=== PATIENT | male | born 1990 | race Caucasian/White ===

== ENCOUNTER 2017-11-27 11:27 | Observation (INO) | payer OTHER ==
--- NOTE | 2017-11-27 12:05 | PDOC ---
Attending Attestation - HPI HPI: 11/27/17 13:31 The patient is a 26 year old male with a significant PMH of acute respiratory failure (with history of code at [facility] with subsequent tracheostomy and PEG tube placement) who presents to the emergency department from [facility] for PEG tube replacement. EMS reports the patient pulled out his PEG tube earlier today. He denies any pain or other complaints. Per [place], pt had the PEG tube put in at [facility] on 10/26/17. They do not know the size of the PEG tube. Allergies: NKA PCP: Dr. Erickson Del Rosario - Physicial Exam PE: 11/27/17 13:31 GENERAL: Awake, alert, in no acute distress HEAD: No signs of trauma EYES: PERRLA, EOMI, sclera anicteric, conjunctiva clear NECK: trach collar in place LUNGS: Breath sounds equal, clear to auscultation bilaterally. No wheezes, and no crackles HEART: Regular rate and rhythm, normal S1 and S2, no murmurs, rubs or gallops ABDOMEN: Soft, nontender, normoactive bowel sounds. No guarding, no rebound. PEG tube in LUQ partially displaced with tube tied in knot, gastric contents in tube. EXTREMITIES: Normal range of motion, no edema. NEUROLOGICAL: Normal speech, cranial nerves grossly intact SKIN: Warm, Dry, normal turgor, no rashes or lesions noted. <Luis Daniel Salazar - Last Filed: 11/27/17 18:10> - Resident Resident Name: French Mares - ED Attending Attestation I have performed the following: I have examined & evaluated the patient, The case was reviewed & discussed with the resident, I agree w/resident's findings & plan, Exceptions are as noted - Medical Decision Making 11/27/17 13:33 26-year-old male presents emergency Department with PEG tube displacement. Vitals initially with tachycardia to 109, will repeat. PEG is displaced on exam , we're currently attempting to find out what size PEG tube in order to replace it. In the meantime, will keep the old tube in the tract to keep it open. 11/27/17 18:48 PEG tube replaced with 16 [place] PEG without complication. Gastric contents seen in the tube. X-ray done with contrast shows PEG to be in good position. On reevaluation of vitals, heart rate is now in the 130s. Possible dehydration as patient may be behind on his fluids/feeds. Due to prolonged length of stay, the patient was put under ED observation and signout was given to Dr. Zamorano. Will put in IV, rehydrate patient, and check basic labs. If vitals normalize and labs are within normal limits, patient can be discharged back to care home. Patient to be signed out to the overnight attending at 1900 for further evaluation and management <Parveen Sheth - Last Filed: 11/27/17 18:53>
--- NOTE | 2017-11-27 12:58 | PDOC ---
History of Present Illness - General Chief Complaint: G Tube Problem Stated Complaint: PEG REPLACEMENT Time Seen by Provider: 11/27/17 12:05 History Source: Patient Exam Limitations: Clinical Condition - History of Present Illness Initial Comments: 11/27/17 12:48 Patient is a 26M with history of acute respiratory failure s/p trach and peg tube at [facility] here today from [facility] complaining of dislodging of PEG tube. EMS reports that he took it out himself because he was bored. [facility] reports that the PEG tube was placed on 10/26/17 at [facility]. Patient denies any pain, nausea, vomiting, fevers, and chills. Patient says he is not sure how the PEG tube got out. [facility] reports that they do not know the size of the PEG tube. Past History - Past Medical History Allergies/Adverse Reactions: Allergies Allergy/AdvReac Type Severity Reaction Status Date / Time No Known Allergies Allergy Verified 11/27/17 12:04 Home Medications: Ambulatory Orders Acetaminophen [Tylenol Arthritis] 650 mg PO QID PRN 11/27/17 Apixaban [Eliquis] 5 mg GT BID 11/27/17 Ergocalciferol [Drisdol Oral Solution -] 8,000 units GT WEEKLY 11/27/17 Folic Acid 1 mg GT DAILY 11/27/17 Multivit-Minerals/Ferrous Fum [Multivitamin Liquid] 9 mg GT DAILY 11/27/17 Thiamine HCl [Vitamin B1] 100 mg GT DAILY 11/27/17 Anemia: Yes COPD: No Other medical history: DVT, dysphagia - Suicide/Smoking/Psychosocial Hx Smoking History: Unknown if ever smoked Review of Systems - Review of Systems Comments:: 11/27/17 12:58 GENERAL/CONSTITUTIONAL: No fever or chills. No weakness. HEAD, EYES, EARS, NOSE AND THROAT: No change in vision. No sore throat. CARDIOVASCULAR: No chest pain or shortness of breath RESPIRATORY: No cough, wheezing, or hemoptysis. GASTROINTESTINAL: No nausea, vomiting, diarrhea or constipation. GENITOURINARY: No dysuria, frequency, or change in urination. MUSCULOSKELETAL: No joint or muscle swelling or pain. No neck or back pain. SKIN: Positive for rash on left arm, resolving NEUROLOGIC: No headache, vertigo, loss of consciousness, or change in strength/ sensation. ENDOCRINE: No increased thirst. No abnormal weight change ALLERGIC/IMMUNOLOGIC: No hives or skin allergy. *Physical Exam - Vital Signs Last Vital Signs Temp Pulse Resp BP Pulse Ox 97.7 F 109 H 18 160/90 96 11/27/17 11:58 11/27/17 11:58 11/27/17 11:58 11/27/17 11:58 11/27/17 11:58 - Physical Exam Comments: 11/27/17 12:59 GENERAL: Awake, alert, and fully oriented, in no acute distress HEAD: No signs of trauma, normocephalic, atraumatic EYES: PERRLA, EOMI, sclera anicteric, conjunctiva clear ENT: Auricles normal inspection, hearing grossly normal, nares patent, oropharynx clear without exudates. Moist mucosa NECK: Normal ROM, supple, no lymphadenopathy, JVD, or masses LUNGS: No distress, speaks full sentences, clear to auscultation bilaterally HEART: Regular rate and rhythm, normal S1 and S2, no murmurs, rubs or gallops, peripheral pulses normal and equal bilaterally. ABDOMEN: Soft, nontender, g-tube with gastric contents in mature appearing tract EXTREMITIES: Normal inspection, Normal range of motion, no edema. No clubbing or cyanosis. NEUROLOGICAL: Cranial nerves II through XII grossly intact. Left arm 0/5 strength, at baseline per patient. SKIN: Warm, Dry, normal turgor, no rashes or lesions noted. ED Treatment Course - LABORATORY CBC & Chemistry Diagram: 11/27/17 18:00 11/27/17 18:00 Medical Decision Making - Medical Decision Making 11/27/17 13:00 Patient is 26M with history of acute respiratory failure s/p trach and peg here today for peg replacement. Vital signs stable and normal. PE unremarkable with exception dislodged g-tube. G-tube placed just over 4 weeks ago. Will attempt replacement. 11/27/17 17:49 Placement confirmed with radiology. Unable to ever obtain prior size. Put 16fr in. Will discharge back to [facility]. 11/27/17 19:04 On evaluation prior to discharge, heart rate found to be 136. EKG obtained, shows sinus tachycardia with rate of 118. No st elevations/depressions, no significant t wave abnormalites. Normal OK, QRS, QTc intervals. Labs drawn and fluid started. Will give 2L. Signed out to Dr Brenner. Believe tachycardia is most likely due to dehydration. *DC/Admit/Observation/Transfer Diagnosis at time of Disposition: PEG tube malfunction - Referrals Referrals: Erickson Del Rosario MD [Primary Care Provider] - - Patient Instructions Printed Discharge Instructions: How to Care for Your PEG Tube - Post Discharge Activity
[2017-11-27] MEDS ORDERED: SODIUM CHLORIDE 1,000 ML IV STA ×2 (17:58→18:13)
[2017-11-27 18:56] LABS: BASO % 1.1 % (0-2.0); EOS % 2.6 % (0-4.5); HEMATOCRIT 34.8 % (35.4-49); HEMOGLOBIN 11.4 GM/dL (11.7-16.9); LYMPH % 18.1 % (8-40); MCH 28.5 pg (25.7-33.7); MCHC 32.8 g/dl (32.0-35.9); MEAN CELL VOLUME 86.8 fl (80-96); MEAN PLT VOLUME 7.6 fl (7.5-11.1); MONO % 10.4 % (3.8-10.2); NEUT % 67.8 % (42.8-82.8); PLATELET COUNT 315 K/MM3 (134-434); RBC 4.01 M/mm3 (4.00-5.60); RDW 17.4 % (11.9-15.9); WHITE BLOOD COUNT 8.1 K/mm3 (4.0-10.0)
--- NOTE | 2017-11-27 19:16 | PDOC ---
*Physical Exam - Vital Signs Last Vital Signs Temp Pulse Resp BP Pulse Ox 97.7 F 109 H 18 160/90 96 11/27/17 11:58 11/27/17 11:58 11/27/17 11:58 11/27/17 11:58 11/27/17 11:58 ED Treatment Course - LABORATORY CBC & Chemistry Diagram: 11/27/17 18:00 11/27/17 18:00 - ADDITIONAL ORDERS Additional order review: 11/27/17 18:00 RBC 4.01 MCV 86.8 MCHC 32.8 RDW 17.4 H MPV 7.6 Neutrophils % 67.8 Lymphocytes % 18.1 Monocytes % 10.4 H Eosinophils % 2.6 Basophils % 1.1 - Medications Given in the ED: ED Medications Discontinued Medications Generic Name Dose Route Start Last Admin Trade Name Freq PRN Reason Stop Dose Admin Sodium Chloride 1,000 mls @ 1,000 mls/hr 11/27/17 17:58 11/27/17 19:08 Normal Saline - IV 11/27/17 18:57 1,000 mls/hr ASDIR STA Administration Medical Decision Making - Medical Decision Making 11/27/17 19:16 Care taken over from Dr. Mares. 11/27/17 20:34 Patient is a 26 yo male w/ PEG presenting for dislodged tube. Unknown size however 16F placed by previous team and confirmed in place. Upon attempted discharge patient noted to by tachycardic to 136 - Patient remains tachycardic after 2L NS. Admitting to hospitalist for observation for persistent tachycardia. *DC/Admit/Observation/Transfer Diagnosis at time of Disposition: PEG tube malfunction, Tachycardia - Discharge Dispostion Admit: Yes - Referrals Referrals: Erickson Del Rosario MD [Primary Care Provider] - - Patient Instructions Printed Discharge Instructions: How to Care for Your PEG Tube - Post Discharge Activity
[2017-11-27 19:19] LABS: INR 1.3 (0.82-1.09); PROTHROMBIN TIME (PATIENT) 14.7 SEC (9.98-11.88)
[2017-11-27 19:27] LABS: ALBUMIN 3.8 g/dl (3.4-5.0); ANION GAP 8 (8-16); BILIRUBIN,TOTAL 0.7 mg/dL (0.2-1.0); BLOOD UREA NITROGEN 6 mg/dL (7-18); CALCIUM 8.9 mg/dL (8.5-10.1); CHLORIDE 103 mmol/L (98-107); CO2 28 mmol/L (21-32); CREATININE 0.5 mg/dL (0.7-1.3); GLUCOSE,RANDOM 94 mg/dL (74-106); SGPT/ALT 26 U/L (12-78); SODIUM 139 mmol/L (136-145); TOT PROT 7.2 g/dl (6.4-8.2)
[2017-11-27 19:29] LABS: ALK PHOS 74 U/L (45-117)
[2017-11-27 19:30] LABS: POTASSIUM 3.9 mmol/L (3.5-5.1); SGOT/AST 21 U/L (15-37)
--- NOTE | 2017-11-27 22:28 | HP ---
Admitting History and Physical - Primary Care Physician PCP: Rohit Garcia - Admission History of Present Illness: 26 year old male with a significant PMH of acute respiratory failure (with history of code at [facility] with subsequent tracheostomy and PEG tube placement) who presents to the emergency department from [facility] for PEG tube replacement. EMS reports the patient pulled out his PEG tube earlier today. He denies any pain or other complaints. Per [place], pt had the PEG tube put in at [facility] on 10/26/17. They do not know the size of the PEG tube. peg tube was placed, pt was found to have tachycardia in ER , was given 2l ivf, remain tachycardic was admitted for observation - Smoking History Smoking history: Unknown if ever smoked Home Medications - Allergies Allergies/Adverse Reactions: Allergies Allergy/AdvReac Type Severity Reaction Status Date / Time No Known Allergies Allergy Verified 11/27/17 12:04 - Home Medications Home Medications: Ambulatory Orders Acetaminophen [Tylenol Arthritis] 650 mg PO QID PRN 11/27/17 Apixaban [Eliquis] 5 mg GT BID 11/27/17 Ergocalciferol [Drisdol -] 8,000 units GT WEEKLY 11/27/17 Folic Acid 1 mg GT DAILY 11/27/17 Multivit-Minerals/Ferrous Fum [Multivitamin Liquid] 9 mg GT DAILY 11/27/17 Thiamine HCl [Vitamin B1 -] 100 mg GT DAILY 11/27/17 Physical Examination Vital Signs: Vital Signs Temperature 97.7 F 11/27/17 11:58 Pulse Rate 118 H 11/27/17 20:13 Respiratory Rate 18 11/27/17 19:17 Blood Pressure 137/91 11/27/17 19:17 O2 Sat by Pulse Oximetry (%) 100 11/27/17 19:17 Constitutional: Yes: Anxious HENT: Yes: Atraumatic Neck: Yes: Other (trach collar) Cardiovascular: Yes: Regular Rate and Rhythm Respiratory: Yes: CTA Bilaterally Gastrointestinal: Yes: Normal Bowel Sounds, Other (peg in place) Extremities: Yes: WNL Edema: No Neurological: Yes: Alert, Oriented Labs: CBC, BMP 11/27/17 18:00 11/27/17 18:00 Problem List - Problems (1) PEG tube malfunction Assessment/Plan: placed in position Code(s): K94.23 - GASTROSTOMY MALFUNCTION (2) Tachycardia Assessment/Plan: monitor on tele ivf fluids given Code(s): R00.0 - TACHYCARDIA, UNSPECIFIED Assessment/Plan Laboratory Tests 11/27/17 11/27/17 11/27/17 18:00 18:00 18:00 WBC 8.1 RBC 4.01 Hgb 11.4 L Hct 34.8 L MCV 86.8 MCH 28.5 MCHC 32.8 RDW 17.4 H Plt Count 315 MPV 7.6 Neutrophils % 67.8 Lymphocytes % 18.1 Monocytes % 10.4 H Eosinophils % 2.6 Basophils % 1.1 PT with INR 14.70 H INR 1.30 H Sodium 139 Potassium 3.9 Chloride 103 Carbon Dioxide 28 Anion Gap 8 BUN 6 L Creatinine 0.5 L Creat Clearance w eGFR > 60 Random Glucose 94 Calcium 8.9 Magnesium 2.0 Total Bilirubin 0.7 AST 21 ALT 26 Alkaline Phosphatase 74 Creatine Kinase 74 Troponin I < 0.02 Total Protein 7.2 Albumin 3.8 Active Medications Generic Name Dose Route Start Last Admin Trade Name Nakulq PRN Reason Stop Dose Admin Apixaban 5 mg 11/28/17 10:00 11/28/17 09:22 Eliquis - PO 5 mg BID RUIZ Administration Folic Acid 1 mg 11/28/17 10:00 11/28/17 09:22 Folic Acid - GT 1 mg DAILY RUIZ Administration Sodium Chloride 1,000 mls @ 75 mls/hr 11/27/17 22:45 11/27/17 23:19 Normal Saline - IV 75 mls/hr ASDIR RUIZ Administration Thiamine HCl 100 mg 11/28/17 10:00 11/28/17 09:22 Vitamin B1 - NR 100 mg DAILY RUIZ Administration
[2017-11-27] MEDS ORDERED: SODIUM CHLORIDE 1,000 ML IV SCH (22:45)
[2017-11-28 07:41] LABS: BASO % 1.2 % (0-2.0); EOS % 3.5 % (0-4.5); HEMATOCRIT 32.9 % (35.4-49); HEMOGLOBIN 10.6 GM/dL (11.7-16.9); LYMPH % 24.2 % (8-40); MCH 28.1 pg (25.7-33.7); MCHC 32.1 g/dl (32.0-35.9); MEAN CELL VOLUME 87.6 fl (80-96); MONO % 9.3 % (3.8-10.2); NEUT % 61.8 % (42.8-82.8); PLATELET COUNT 313 K/MM3 (134-434); RBC 3.76 M/mm3 (4.00-5.60); RDW 17.5 % (11.9-15.9); WHITE BLOOD COUNT 6.3 K/mm3 (4.0-10.0)
[2017-11-28 07:59] LABS: ALBUMIN 3.6 g/dl (3.4-5.0); ANION GAP 10 (8-16); BLOOD UREA NITROGEN 5 mg/dL (7-18); CALCIUM 8.5 mg/dL (8.5-10.1); CHLORIDE 107 mmol/L (98-107); CO2 23 mmol/L (21-32); CREATININE 0.4 mg/dL (0.7-1.3); GLUCOSE,RANDOM 84 mg/dL (74-106); POTASSIUM 3.8 mmol/L (3.5-5.1); SGOT/AST 16 U/L (15-37); SGPT/ALT 25 U/L (12-78); SODIUM 140 mmol/L (136-145)
[2017-11-28 08:00] LABS: ALK PHOS 70 U/L (45-117); BILIRUBIN,TOTAL 0.7 mg/dL (0.2-1.0); TOT PROT 6.8 g/dl (6.4-8.2)
[2017-11-28 08:03] VITALS: TEMP 98.7
--- NOTE | 2017-11-28 08:54 | EKG ---
Test Reason : Blood Pressure : / mmHG Vent. Rate : 118 BPM Atrial Rate : 118 BPM P-R Int : 126 ms QRS Dur : 090 ms QT Int : 342 ms P-R-T Axes : 054 -01 027 degrees QTc Int : 479 ms SINUS TACHYCARDIA MODERATE VOLTAGE CRITERIA FOR LVH, MAY BE NORMAL VARIANT BORDERLINE ECG NO PREVIOUS ECGS AVAILABLE Confirmed by Micheal Nick MD ([id number]) on 11/28/2017 8:53:58 AM Referred By: Confirmed By:Micheal Nick MD
[2017-11-28] MEDS ORDERED: APIXABAN 5 MG TABLET PO SCH (10:00)
[2017-11-28] MEDS ORDERED: THIAMINE HCL 100 MG TABLET (FP) NR SCH (10:00)
[2017-11-28] MEDS ORDERED: FOLIC ACID 1 MG TABLET (FP) GT SCH (10:00)
--- NOTE | 2017-11-28 12:48 | DS ---
Physical Examination Vital Signs: Vital Signs Temperature 98.7 F 11/28/17 07:58 Pulse Rate 115 H 11/28/17 10:43 Respiratory Rate 18 11/28/17 10:43 Blood Pressure 139/79 11/28/17 07:58 O2 Sat by Pulse Oximetry (%) 98 11/28/17 10:43 Labs: CBC, BMP 11/28/17 07:15 11/28/17 07:15 Discharge Summary Reason For Visit: TACHYCARDIA Current Active Problems PEG tube malfunction (Acute) Tachycardia (Acute) Condition: Good - Instructions Referrals: Erickson Del Rosario MD [Primary Care Provider] - - Home Medications Comprehensive Discharge Medication List: Ambulatory Orders Acetaminophen [Tylenol Arthritis] 650 mg PO QID PRN 11/27/17 Apixaban [Eliquis] 5 mg GT BID 11/27/17 Ergocalciferol [Drisdol Oral Solution -] 8,000 units GT WEEKLY 11/27/17 Folic Acid 1 mg GT DAILY 11/27/17 Multivit-Minerals/Ferrous Fum [Multivitamin Liquid] 9 mg GT DAILY 11/27/17 Thiamine HCl [Vitamin B1] 100 mg GT DAILY 11/27/17 cleared by cardio to be dc to [facility]
--- NOTE | 2017-11-28 13:17 | CON.CARD ---
Cardiology Consult (text) - Consultation Consultation Note: Cardiology Patient was briefly seen in the ED. Patient is a 27 year old male with previous history of acute respiratory failure requiring mechanical ventilation at [facility] and a PEG placement. This happened in October. He was admitted this time after he pulled out the PEG and it had to be repositioned. ECG reveals sinus tachycardia and cardiology consultation was called for further evaluation. He remains asymptomatic at this time. Blood work including troponin level is unremarkable. Patient may be returned back to the intermediate and no further cardiac intervention is needed at this time. Discussed with ER Nursing staff. Thank you for the consultation. Sam Car MD
[2017-11-28 13:18] VITALS: BMI 34.4
[2017-11-28 14:48] VITALS: BP 125/99; PULSE 113
== END 2017-11-28 14:50 ==
LOC: JER 11:27 → JERBED 20:36
PROVIDERS: ADMIT Internal Medicine; ATTEND Internal Medicine
PROC: 0D20XUZ Change Feeding Device in Upper Intestinal Tract, External Approach (ICD-10-PCS; principal; 2017-11-27)
DX: K94.23 Gastrostomy malfunction (principal); R00.0 Tachycardia, unspecified; Z87.09 Personal history of other diseases of the respiratory system
CPT/HCPCS: 36415; 43760; 74018-TC-FY; 80053; 82550; 83735; 84484; 85025; 85610; 93005; 93010; 99284-25; G0378

== ENCOUNTER 2017-11-30 23:01 | Inpatient (IN) | payer OTHER ==
[2017-11-30 23:26] VITALS: BMI 25.7
--- NOTE | 2017-12-01 00:07 | PDOC ---
History of Present Illness - General Chief Complaint: Trach Tube Replacement Stated Complaint: TRACHEOSTOMY TUBE REPLACEMENT Time Seen by Provider: 11/30/17 23:50 - History of Present Illness Initial Comments: 12/01/17 00:27 The patient is a 27 year old male with a history of respiratory failure s/p trach and peg who presents from [facility] for evaluation of a clogged trach. The patient is not a reliable historian so history is obtained from CT paperwork. Per CT, they were having difficulty suctioning the patient's trach and sent him to the ER for evaluation. The patient denies any fevers, chills, SOB, difficulty breathing, chest pain, nausea, vomiting, abdominal pain, or changes with urination or bowel movements. Past History - Past Medical History Allergies/Adverse Reactions: Allergies Allergy/AdvReac Type Severity Reaction Status Date / Time No Known Allergies Allergy Verified 11/30/17 23:12 Home Medications: Ambulatory Orders Acetaminophen [Tylenol Arthritis] 650 mg PO QID PRN 11/27/17 Apixaban [Eliquis] 5 mg GT BID 11/27/17 Ergocalciferol [Drisdol -] 8,000 units GT WEEKLY 11/27/17 Folic Acid 1 mg GT DAILY 11/27/17 Multivit-Minerals/Ferrous Fum [Multivitamin Liquid] 9 mg GT DAILY 11/27/17 Thiamine HCl [Vitamin B1 -] 100 mg GT DAILY 11/27/17 Anemia: Yes COPD: No - Suicide/Smoking/Psychosocial Hx Smoking History: Never smoked Have you smoked in the past 12 months: No Information on smoking cessation initiated: No Hx Alcohol Use: No Drug/Substance Use Hx: No Review of Systems - Review of Systems Comments:: 12/01/17 00:30 Constitutional: No fevers, chills, fatigue, malaise HEENT: No Rhinorrhea, nasal congestion, visual changes Cardiovascular: No chest pain, syncope, palpitations, lightheadedness Respiratory: No Cough, SOB, Hemoptysis, Gastrointestinal: No Abdominal pain, Nausea, Vomiting, Constipation, Diarrhea, Melena Genitourinary: No Dysuria, Frequency, Urgency, Hesitancy, Hematuria, Flank pain Musculoskeletal: No Myalgia, arthralgia Skin: No rashes, itching, bruising, pallor Neurologic: No Headache, Dizziness, Numbness, Weakness, or Tingling Psychiatric: No Hallucinations. No SI or HI *Physical Exam - Vital Signs Last Vital Signs Temp Pulse Resp BP Pulse Ox 97.5 F L 100 H 20 141/90 98 11/30/17 23:22 11/30/17 23:22 11/30/17 23:22 11/30/17 23:22 11/30/17 23:22 - Physical Exam Comments: 12/01/17 00:31 General Appearance: Nourished. No Apparent Distress HEENT: Trach in place with some thick whitish, greenish discharge around the trach site. No Pharyngeal Erythema, Tonsillar Exudate, Tonsillar Erythema Neck: No Cervical Lymphadenopathy Respiratory/Chest: Lungs Clear, Normal Breath Sounds. No Crackles, Rales, Rhonchi, Wheezing Cardiovascular: Regular Rhythm, Regular Rate. No Murmur, Gallops, Rubs Gastrointestinal/Abdominal: Normal Bowel Sounds, Soft. No Guarding, Rebound, Tenderness Musculoskeletal: No CVA Tenderness Extremity: Normal Capillary Refill Integumentary: Normal Color, Dry, Warm Neurologic: Fully Oriented, Alert, Normal Mood/Affect, Normal Response, ED Treatment Course - LABORATORY CBC & Chemistry Diagram: 12/01/17 02:55 12/01/17 02:55 Medical Decision Making - Medical Decision Making 12/01/17 00:32 The patient is a 27 year old male with a history of respiratory failure s/p trach and peg who presents from [facility] for evaluation of a clogged trach. Given that the patient is asymptomatic at this time, we will attempt to suction out the trach here in the ED as well as send a culture of the discharge around the trach site. We will continue to monitor and reassess. 12/01/17 02:18 Trach was unable to be suctioned by nurse or respiratory due to blockage. The patient will require eval for trach replacement by ENT. We discussed the case with the hospitalist team who accepted the patient for admission. *DC/Admit/Observation/Transfer Diagnosis at time of Disposition: Complication of tracheostomy tube - Discharge Dispostion Condition at time of disposition: Stable Admit: Yes - Referrals - Patient Instructions - Post Discharge Activity
--- NOTE | 2017-12-01 00:07 | PDOC ---
Attending Attestation - Resident Resident Name: Yasir Rivera - ED Attending Attestation I have performed the following: I have examined & evaluated the patient, The case was reviewed & discussed with the resident, I agree w/resident's findings & plan, Exceptions are as noted <Luis Morales - Last Filed: 12/01/17 00:07> - HPI HPI: 12/01/17 00:16 The patient is a 27 year old male, with a significant past medical history of acute respiratory failure (with history of code at [facility] with subsequent tracheostomy and PEG tube placement), who presents to the emergency department from [facility] for evaluation of tracheostomy tube. The patient reports he was sent to the ER for possible trach tube replacement secondary to clogged tube. As per nursing records, patient has associated purulent drainage, but no erythema. Patient denies any recent fever or chills. He denies any nausea or vomiting. Allergies: NKDA - Physicial Exam PE: 12/01/17 00:43 GENERAL: Well developed, well nourished. Awake and alert. No acute distress. HEENT: Normocephalic, atraumatic. PERRLA, EOMI. No conjunctival pallor. Sclera are non- icteric. Moist mucous membranes. Oropharynx is clear. NECK: Tracheostomy tube in place with green/whitish discharge surrounding the area. Supple. CARDIOVASCULAR: Regular rate and rhythm. No murmurs, rubs, or gallops. Distal pulses are 2+ and symmetric. PULMONARY: No evidence of respiratory distress. Lungs clear to auscultation bilaterally. No wheezing, rales or rhonchi. ABDOMINAL: Soft. Non-tender. Non-distended. No rebound or guarding. No organomegaly. Normoactive bowel sounds. MUSCULOSKELETAL Normal range of motion at all joints. No bony deformities or tenderness. No CVA tenderness. EXTREMITIES: No cyanosis. No clubbing. No edema. No calf tenderness. SKIN: Warm and dry. Normal capillary refill. No rashes. No jaundice. NEUROLOGICAL: Alert, awake, appropriate. Cranial nerves 2-12 intact. No deficits to light touch and temperature in face, upper extremities and lower extremities. No motor deficits in the in face, upper extremities and lower extremities. - Medical Decision Making 12/01/17 00:16 Documentation prepared by Darrell Turner, acting as medical biller for Luis Morales DO. <Darrell Turner - Last Filed: 12/01/17 00:44>
--- NOTE | 2017-12-01 01:12 | HP ---
CHIEF COMPLAINT: clogged trach PCP: HISTORY OF PRESENT ILLNESS: This is a 27-year-old male with past medical history of hypoxic arrest status post's alcoholic encephalopathy, extremities DVT who sent to emergency department from [facility] with clotted trach. Patient unable to be suctioned that his care facility. Also attempts to suction patient unsuccessful in the emergency department. Patient denies any shortness of breath, chest pain, abdominal pain, nausea, vomiting, cough. ER course was notable for: (1) unable to pass suction tube (2) drainage culture collected Recent Travel: none PAST MEDICAL HISTORY: see HPI PAST SURGICAL HISTORY: see HPI Social History: Smoking: denies Alcohol: 1 bottle hard liquor daily until 09/24 Drugs: denies Family History: Allergies No Known Allergies Allergy (Verified 11/30/17 23:12) HOME MEDICATIONS: Home Medications Medication Instructions Recorded Acetaminophen [Tylenol Arthritis] 650 mg PO QID PRN 11/27/17 Apixaban [Eliquis] 5 mg GT BID 11/27/17 Ergocalciferol [Drisdol -] 8,000 units GT WEEKLY 11/27/17 Folic Acid 1 mg GT DAILY 11/27/17 Multivit-Minerals/Ferrous Fum 9 mg GT DAILY 11/27/17 [Multivitamin Liquid] Thiamine HCl [Vitamin B1 -] 100 mg GT DAILY 11/27/17 REVIEW OF SYSTEMS CONSTITUTIONAL: Absent: fever, chills, diaphoresis, generalized weakness, malaise, loss of appetite, weight change HEENT: Present- clogged trach Absent: rhinorrhea, nasal congestion, throat pain, throat swelling, difficulty swallowing, mouth swelling, ear pain, eye pain, visual changes CARDIOVASCULAR: Absent: chest pain, syncope, palpitations, irregular heart rate, lightheadedness , peripheral edema RESPIRATORY: Absent: cough, shortness of breath, dyspnea with exertion, orthopnea, wheezing, stridor, hemoptysis GASTROINTESTINAL: Absent: abdominal pain, abdominal distension, nausea, vomiting, diarrhea, constipation, melena, hematochezia GENITOURINARY: Absent: dysuria, frequency, urgency, hesitancy, hematuria, flank pain, genital pain MUSCULOSKELETAL: Absent: myalgia, arthralgia, joint swelling, back pain, neck pain SKIN: Absent: rash, itching, pallor HEMATOLOGIC/IMMUNOLOGIC: Absent: easy bleeding, easy bruising, lymphadenopathy, frequent infections ENDOCRINE: Absent: unexplained weight gain, unexplained weight loss, heat intolerance, cold intolerance NEUROLOGIC: Absent: headache, focal weakness or paresthesias, dizziness, unsteady gait, seizure, mental status changes, bladder or bowel incontinence PSYCHIATRIC: Absent: anxiety, depression, suicidal or homicidal ideation, hallucinations. PHYSICAL EXAMINATION Vital Signs - 24 hr 11/30/17 23:22 Temperature 97.5 F L Pulse Rate 100 H Respiratory 20 Rate Blood Pressure 141/90 O2 Sat by Pulse 98 Oximetry (%) GENERAL: Awake, alert, and fully oriented, in no acute distress. HEAD: Normal with no signs of trauma. EYES: Pupils equal, round and reactive to light, extraocular movements intact, sclera anicteric, conjunctiva clear. No lid lag. EARS, NOSE, THROAT: Ears normal, nares patent, oropharynx clear without exudates. Moist mucous membranes. NECK: Normal range of motion, supple without lymphadenopathy, JVD, or masses. LUNGS: Breath sounds equal, clear to auscultation bilaterally. No wheezes, and no crackles. No accessory muscle use. HEART: Regular rate and rhythm, normal S1 and S2 without murmur, rub or gallop. ABDOMEN: Soft, nontender, not distended, normoactive bowel sounds, no guarding, no rebound, no masses. No hepatomegaly or splenomegaly. PEG present. No erythema surrounding PEG. MUSCULOSKELETAL: Normal range of motion at all joints. No bony deformities or tenderness. No CVA tenderness. Left translational specialist strength 2/5. Right 5/5. UPPER EXTREMITIES: 2+ pulses, warm, well-perfused. No cyanosis. No clubbing. No peripheral edema. Left translational specialist strength 2/5. Right 5/5. LOWER EXTREMITIES: 2+ pulses, warm, well-perfused. No calf tenderness. No peripheral edema. NEUROLOGICAL: Cranial nerves II-XII intact. Normal speech. Normal gait. PSYCHIATRIC: Cooperative. Good eye contact. Appropriate mood and affect. SKIN: Warm, dry, normal turgor, no rashes or lesions noted, normal capillary refill. ASSESSMENT/PLAN: A: 27-year-old male with history of hypoxic arrest status post trach and PEG now with clogged trach P: Clogged tracheostomy - ENT consult to replace - Humidified oxygen via trach collar Right lower extremity DVT - Eliquis F/E/N - Jevity at 75 mL an hour for 18 hours daily - Replete as needed PPX - Eliquis Dispo- requires observation of his acute medical condition Visit type - Emergency Visit Emergency Visit: Yes ED Registration Date: 12/01/17 Care time: The patient presented to the Emergency Department on the above date and was hospitalized for further evaluation of their emergent condition. - New Patient This patient is new to me today: Yes Date on this admission: 12/01/17 - Critical Care Critical Care patient: No Hospitalist Screening - Colonoscopy Questionnaire Colonoscopy Questionnaire: Colonoscopy Questionnaire - Patient: 50 - 75 years old and never had a screening colonoscopy: No History of colon or rectal polyps, or CA: No History of IBD, Crohn's disease or UC: No History of abdominal radiation therapy as a child: No - Relative: 1 with colon or rectal CA, or polyps at age 60 or younger: Unknown Colon or rectal CA diagnosed at age 45 or younger: Unknown Multiple relatives with colon or rectal CA: Unknown - Outcome: Screening Result: Negative Screen
[2017-12-01 03:00] LABS: BASO % 1.2 % (0-2.0); EOS % 2.1 % (0-4.5); HEMATOCRIT 32.7 % (35.4-49); HEMOGLOBIN 10.6 GM/dL (11.7-16.9); LYMPH % 11.1 % (8-40); MCH 28.5 pg (25.7-33.7); MCHC 32.5 g/dl (32.0-35.9); MEAN CELL VOLUME 87.6 fl (80-96); MEAN PLT VOLUME 7.8 fl (7.5-11.1); NEUT % 78.6 % (42.8-82.8); PLATELET COUNT 315 K/MM3 (134-434); RBC 3.73 M/mm3 (4.00-5.60); RDW 17.5 % (11.9-15.9); WHITE BLOOD COUNT 12.4 K/mm3 (4.0-10.0)
[2017-12-01 03:15] LABS: INR 1.5 (0.82-1.09); PROTHROMBIN TIME (PATIENT) 16.9 SEC (9.98-11.88)
[2017-12-01] MEDS ORDERED: ACETAMINOPHEN 650 MG/20.3 ML ORAL SOLUTION (CUPS) PO PRN (03:15)
[2017-12-01] MEDS ORDERED: ACETAMINOPHEN 650 MG/20.3 ML ORAL SOLUTION (CUPS) GT PRN (03:16)
[2017-12-01 03:28] LABS: ALBUMIN 3.4 g/dl (3.4-5.0); ALK PHOS 72 U/L (45-117); ANION GAP 13 (8-16); BILIRUBIN,TOTAL 0.8 mg/dL (0.2-1.0); BLOOD UREA NITROGEN 4 mg/dL (7-18); CALCIUM 9.2 mg/dL (8.5-10.1); CHLORIDE 105 mmol/L (98-107); CO2 22 mmol/L (21-32); CREATININE 0.3 mg/dL (0.7-1.3); GLUCOSE,RANDOM 91 mg/dL (74-106); POTASSIUM 3.8 mmol/L (3.5-5.1); SGOT/AST 9 U/L (15-37); SGPT/ALT 23 U/L (12-78); SODIUM 140 mmol/L (136-145); TOT PROT 7.1 g/dl (6.4-8.2)
[2017-12-01] MEDS ORDERED: SODIUM CHLORIDE 1,000 ML IV STA (06:41)
--- NOTE | 2017-12-01 08:44 | HOSP ---
Physical Examination Vital Signs: Vital Signs Temperature 99.6 F 12/01/17 08:35 Pulse Rate 137 H 12/01/17 08:35 Respiratory Rate 22 12/01/17 08:35 Blood Pressure 130/88 12/01/17 08:35 O2 Sat by Pulse Oximetry (%) 98 12/01/17 01:00 Labs: CBC, BMP 12/01/17 02:55 12/01/17 02:55 Hospitalist Encounter Assessment: Called for fever 102 Send lactic acid, blood cx, urine cx, ua, EKG obtain CXR D dimer still pending Tachycardia to 130's per RN, BP 137 systolic Give tylenol after micro collection RN aware Will endorse to day pcp
[2017-12-01] MEDS ORDERED: VANCOMYCIN 1,000 MG in DEXTROSE 5%-WATER - 250 ML IVPB ONE (09:00)
[2017-12-01 09:04] LABS: BASO % 0.6 % (0-2.0); EOS % 1.8 % (0-4.5); HEMATOCRIT 33.4 % (35.4-49); HEMOGLOBIN 10.4 GM/dL (11.7-16.9); LYMPH % 8.8 % (8-40); MCH 27.4 pg (25.7-33.7); MCHC 31.2 g/dl (32.0-35.9); MEAN PLT VOLUME 8.2 fl (7.5-11.1); MONO % 5.5 % (3.8-10.2); NEUT % 83.3 % (42.8-82.8); PLATELET COUNT 349 K/MM3 (134-434); RBC 3.79 M/mm3 (4.00-5.60); RDW 17.8 % (11.9-15.9); WHITE BLOOD COUNT 14.9 K/mm3 (4.0-10.0)
[2017-12-01 09:07] LABS: ANION GAP 12 (8-16); BLOOD UREA NITROGEN 4 mg/dL (7-18); CALCIUM 9.4 mg/dL (8.5-10.1); CHLORIDE 102 mmol/L (98-107); CO2 24 mmol/L (21-32); CREATININE 0.5 mg/dL (0.7-1.3); GLUCOSE,RANDOM 94 mg/dL (74-106); POTASSIUM 3.7 mmol/L (3.5-5.1); SODIUM 138 mmol/L (136-145)
--- NOTE | 2017-12-01 09:32 | EKG ---
Test Reason : Blood Pressure : / mmHG Vent. Rate : 135 BPM Atrial Rate : 135 BPM P-R Int : 126 ms QRS Dur : 082 ms QT Int : 304 ms P-R-T Axes : 061 -04 028 degrees QTc Int : 456 ms POOR DATA QUALITY, INTERPRETATION MAY BE ADVERSELY AFFECTED SINUS TACHYCARDIA MINIMAL VOLTAGE CRITERIA FOR LVH, MAY BE NORMAL VARIANT WHEN COMPARED WITH ECG OF 27-NOV-2017 18:36, NO SIGNIFICANT CHANGE WAS FOUND Confirmed by DEAN WARE MD ([id number]) on 12/01/2017 9:32:22 AM Referred By: Confirmed By:DEAN WARE MD
[2017-12-01] MEDS ORDERED: PIPERACILLIN/TAZOB 3.375 GM 50 ML IVPB ONE (09:45)
[2017-12-01] MEDS ORDERED: PT OWN MED DRAWER 7, Y5N ONE ×4 (10:11→20:43)
[2017-12-01] MEDS: FOLIC ACID 1 MG TABLET (FP) GT SCH (10:16)
[2017-12-01] MEDS: THIAMINE HCL 100 MG TABLET (FP) NGT SCH (10:16)
--- NOTE | 2017-12-01 11:05 | PN ---
Progress Note (short form) - Note Progress Note: pt seen/ examined today Discussed with JAIL GUARD Susy will assume care Broad spectrum abx Influenza screen I/d eval. iv fluids will follow Vital Signs Temp 102.3 F H 12/01/17 10:10 Pulse 144 H 12/01/17 10:10 Resp 28 H 12/01/17 10:10 BP 134/70 12/01/17 10:10 Pulse Ox 98 12/01/17 01:00 Intake & Output 11/30/17 11/30/17 12/01/17 11:59 23:59 11:59 Intake Total 800 Output Total 420 Balance 380 Weight 150 lb Intake: IVPB 50 Tube Feeding 250 Tube Irrigant 500 Output: Urine 420 Void 420 Other: Voiding Method Urinal Height 5 ft 4 in Body Mass Index (BMI) 25.7 Weight Measurement Method Estimated by Staff Active Medications Acetaminophen (Tylenol Oral Solution -) 650 mg GT Q6H PRN PRN Reason: FEVER Last Admin: 12/01/17 10:15 Dose: 650 mg Apixaban (Eliquis -) 5 mg PO BID [facility] Folic Acid (Folic Acid -) 1 mg GT DAILY [facility] Last Admin: 12/01/17 10:16 Dose: 1 mg Potassium Chloride/Dextrose/Sod Cl (D5-1/2ns+20 Meq Kcl -) 20 meq in 1,000 mls @ 125 mls/hr IV ASDIR RUIZ Thiamine HCl (Vitamin B1 -) 100 mg NGT DAILY [facility] Last Admin: 12/01/17 10:16 Dose: 100 mg CBC, BMP 12/01/17 07:20 12/01/17 07:20
[2017-12-01 11:10] LABS: URINE APPEARANCE CLEAR; URINE BILIRUBIN NEGATIVE (NEGATIVE); URINE BLOOD NEGATIVE (NEGATIVE); URINE COLOR YELLOW; URINE GLUCOSE (UA) NEGATIVE (NEGATIVE); URINE KETONE NEGATIVE (NEGATIVE); URINE LEUK ESTERASE NEGATIVE (NEGATIVE); URINE NITRITE NEGATIVE (NEGATIVE); URINE PROTEIN NEGATIVE (NEGATIVE); URINE UROBILINOGEN 4.0 E.U/dl mg/dL (0.2-1.0)
--- NOTE | 2017-12-01 12:58 | CON.ENT ---
Consult Consult Specialty:: otolaryngology Reason for Consultation:: trach change - History of Present Illness Chief Complaint: blocked trach History of Present Illness: 27M hx alcoholic encephalopathy, extremity DVT admitted through ER overnight. He reportedly has a chronic trach and they have been unable to suction it. He denies any shortness of breath. He is a poor historian. - History Source History Provided By: Patient Limitations to Obtaining History: Poor Historian - Alcohol/Substance Use Hx Alcohol Use: No - Smoking History Smoking history: Never smoked Have you smoked in the past 12 months: No Home Medications - Allergies Allergies/Adverse Reactions: Allergies Allergy/AdvReac Type Severity Reaction Status Date / Time No Known Allergies Allergy Verified 11/30/17 23:12 - Home Medications Home Medications: Ambulatory Orders Acetaminophen [Tylenol Arthritis] 650 mg PO QID PRN 11/27/17 Apixaban [Eliquis] 5 mg GT BID 11/27/17 Ergocalciferol [Drisdol -] 8,000 units GT WEEKLY 11/27/17 Folic Acid 1 mg GT DAILY 11/27/17 Multivit-Minerals/Ferrous Fum [Multivitamin Liquid] 9 mg GT DAILY 11/27/17 Thiamine HCl [Vitamin B1 -] 100 mg GT DAILY 11/27/17 Review of Systems - Review of Systems Respiratory: denies: SOB Physical Exam-ENT Vital Signs: Vital Signs Temperature 98.9 F 12/01/17 11:41 Pulse Rate 147 H 12/01/17 11:41 Respiratory Rate 24 12/01/17 11:41 Blood Pressure 142/76 12/01/17 11:41 O2 Sat by Pulse Oximetry (%) 98 12/01/17 01:00 Constitutional: Yes: Well Nourished, No Distress, Other (Laying flat in bed listening to music. Strong voice, no audible air escape through trach. no stridor/stertor.) Head: Yes: WNL Face: Yes: WNL Eyes: Yes: WNL Nose: Yes: WNL, Septum Deviated Oral/Pharynx: Yes: WNL Outer Ear: Yes: WNL Ear Canal: Yes: Cerumen Neck: Yes: Other (Portex ID 7 with velcro ties, cuffless. Unable to pass 12 suction catheter past the curvature of the trach tube. No inner cannula present. Stoma site healthy.) Neurological: Yes: Other (CN3-7,11,12 intact grossly) Imaging - Results Other: Other (Trach Change done) Problem List - Problems (1) Complication of tracheostomy tube Assessment/Plan: Changed to new Portex ID 7, cuffless, fenestrated, with inner cannula in position. Verified patency with suction, cough reflex triggered, and audible air escape. - The old fenestrated tube was occluded. Use of inner cannula can prevent this from happening, with appropriate trach care. Fenestrated tubes can have ingrowth of granulation tissue, though they allow for better phonation. - Adv to f/u with his tracheostomy surgeon for further care. - No e/o infxn. No significant secretions. - Please keep extra Portex ID 7, cuffed tube at bedside in case of emergency. Also leave obturator for current trach in room. Routine trach care. Code(s): J95.00 - UNSPECIFIED TRACHEOSTOMY COMPLICATION (2) Tachycardia Assessment/Plan: fever, tachycardia, elevated d-dimer - workup per primary team Code(s): R00.0 - TACHYCARDIA, UNSPECIFIED
[2017-12-01] MEDS: MULTIVIT-MINERALS 236 ML ML GT SCH (13:35)
[2017-12-01] MEDS: APIXABAN 5 MG TABLET PO SCH ×2 (13:35→21:41)
--- NOTE | 2017-12-01 13:48 | PN ---
Progress Note, Physician Chief Complaint: ID Change of tracheostomy today Febrile NAD - Current Medication List Current Medications: Active Medications Acetaminophen (Tylenol Oral Solution -) 650 mg GT Q6H PRN PRN Reason: FEVER Last Admin: 12/01/17 10:15 Dose: 650 mg Apixaban (Eliquis -) 5 mg PO BID [facility] Last Admin: 12/01/17 13:35 Dose: 5 mg Folic Acid (Folic Acid -) 1 mg GT DAILY [facility] Last Admin: 12/01/17 10:16 Dose: 1 mg Potassium Chloride/Dextrose/Sod Cl (D5-1/2ns+20 Meq Kcl -) 20 meq in 1,000 mls @ 125 mls/hr IV ASDIR [facility] Thiamine HCl (Vitamin B1 -) 100 mg NGT DAILY [facility] Last Admin: 12/01/17 10:16 Dose: 100 mg - Objective Vital Signs: Vital Signs Temperature 98.9 F 12/01/17 11:41 Pulse Rate 123 H 12/01/17 13:18 Respiratory Rate 24 12/01/17 13:18 Blood Pressure 151/78 12/01/17 13:18 O2 Sat by Pulse Oximetry (%) 98 12/01/17 01:00 Constitutional: Yes: No Distress Neck: Yes: Other (Trach) Cardiovascular: Yes: S1, S2 Respiratory: Yes: WNL, Regular, CTA Bilaterally Gastrointestinal: Yes: Soft, Other (PEG). No: Tenderness Extremities: No: Cold, Cool, Cyanosis Edema: Yes Labs: CBC, BMP 12/01/17 07:20 12/01/17 07:20 INR, PTT INR 1.50 (0.82-1.09) H 12/01/17 02:55 Problem List - Problems (1) FUO (fever of unknown origin) Code(s): R50.9 - FEVER, UNSPECIFIED (2) Complication of tracheostomy tube Code(s): J95.00 - UNSPECIFIED TRACHEOSTOMY COMPLICATION Assessment/Plan Laboratory Tests 12/01/17 12/01/17 07:20 07:20 WBC 14.9 H RBC 3.79 L Hct 33.4 L Plt Count 349 BUN 4 L Creatinine 0.5 L D Chest xray negative Assessment Fever related to tracheitis staph GNB pseudomonas Plan Pending respiratory culture Vancomycin and Edie Cordova MD
--- NOTE | 2017-12-01 14:48 | CONS ---
DATE OF CONSULTATION: 12/01/2017 This is a 27-year-old male from the long-term with a history of anoxic encephalopathy and a chronic tracheostomy and PEG who presents for evaluation of difficulty suctioning the patient's tracheostomy. Since admission has been seen by Dr. Joshua Cadena of ENT and reviewing his consultation indicates that the old tube was occluded. The tracheostomy was changed several hours ago. Since admission, the patient has had fever as high as 102.3. He was noted to be tachycardic but has maintained his blood pressure with a rapid respiratory rate. He is in no acute distress and I am asked to see him regarding further antibiotic management. PAST MEDICAL HISTORY: Includes respiratory failure, anoxic encephalopathy, alcoholic encephalopathy, DVT. MEDICATIONS: Eliquis. ALLERGIES: None known. SOCIAL HISTORY: SOCIAL HISTORY: Heavy alcohol ingestion, nonsmoker, denies substance abuse. HIV status unknown. FAMILY HISTORY: Unobtainable. REVIEW OF SYSTEMS: Respiratory: Tachypnea. Does not appear in respiratory distress. No cough. Positive tracheostomy. Cardiac: No chest pain, palpitations, syncope. Gastrointestinal: No abdominal pain, abdominal distention, nausea, vomiting diarrhea. Genitourinary: No dysuria, hematuria or urinary frequency. PHYSICAL EXAMINATION: General: He is a heavy-set male in no acute distress. Vital Signs: Temperature 98.9, pulse 123, blood pressure 150/78, respirations 24, O2 saturation 98% on room air. Neck: New tracheostomy just placed. Lungs: Bilateral rhonchi. Heart: S1, S2. Regular rhythm, tachycardic, without murmurs. Abdomen: Soft, nontender, without organomegaly. PEG feeding tube. Extremities: Trace foot edema bilaterally. LABORATORY DATA: White count 14.9, hemoglobin 10.4, platelets 349. INR 1.50. BUN 4, creatinine 0.5. Liver enzymes within normal limits. Urinalysis: Negative leukocyte esterase. Chest x-ray was reviewed. It shows no acute infiltrate. ASSESSMENT: A 27-year-old male with a history of respiratory failure, status post tracheostomy and percutaneous endoscopic gastrostomy placement from the long-term setting who presents with obstructed tracheostomy and fever, leukocytosis. He clinically does not appear to have pneumonia and his chest x-ray shows no acute infiltrate. The possibility of an infection in the trachea is considered, and this might to be due to staphylococcal or gram-negative organisms including pseudomonas. Pending cultures I will treat him with a combination of vancomycin and Zosyn with further recommendations to follow. The case was discussed with his nurse practitioner. RUBY PRESTON M.D. [id number]
--- NOTE | 2017-12-01 15:40 | CON.PULM ---
Consult - History of Present Illness History of Present Illness: The patient is a 27 year old male, with a significant past medical history of acute respiratory failure (with history of code at [facility] with subsequent tracheostomy and PEG tube placement), who presents to the emergency department from [facility] for evaluation of blocked tracheostomy tube. As per nursing records, patient has associated purulent drainage, but no erythema. Patient denies any recent fever or chills. He denies any nausea or vomiting. ENT has changed trach which was blocked with crusted secretions. Patient has since spiked fever up to 102. - History Source History Provided By: Patient, Medical Record Limitations to Obtaining History: Clinical Condition - Past Medical History [employer]: Yes: CVA, Other (anoxic brain injury). No: Alzheimer's Cardio/Vascular: Yes: Other (cardiopulmonary arrest). No: AFIB Pulmonary: No: Asthma, COPD Gastrointestinal: No: Ascites Hepatobiliary: No: Cirrhosis Renal/: No: Renal Failure Heme/Onc: Yes: Anemia - Past Surgical History Additional Surgical History: trach/peg - Alcohol/Substance Use Hx Alcohol Use: No - Smoking History Smoking history: Never smoked Have you smoked in the past 12 months: No - Social History Usual Living Arrangement: Alf History of Recent Travel: No Home Medications - Allergies Allergies/Adverse Reactions: Allergies Allergy/AdvReac Type Severity Reaction Status Date / Time No Known Allergies Allergy Verified 11/30/17 23:12 - Home Medications Home Medications: Ambulatory Orders Acetaminophen [Tylenol Arthritis] 650 mg PO QID PRN 11/27/17 Apixaban [Eliquis] 5 mg GT BID 11/27/17 Ergocalciferol [Drisdol -] 8,000 units GT WEEKLY 11/27/17 Folic Acid 1 mg GT DAILY 11/27/17 Multivit-Minerals/Ferrous Fum [Multivitamin Liquid] 9 mg GT DAILY 11/27/17 Thiamine HCl [Vitamin B1 -] 100 mg GT DAILY 11/27/17 Family Disease History - Family Disease History Family History: Unable to Obtain Review of Systems Unable to obtain ROS, reason: unable to obtain Physical Exam Vital Sings: Vital Signs Temperature 98.9 F 12/01/17 11:41 Pulse Rate 123 H 12/01/17 13:18 Respiratory Rate 24 12/01/17 13:18 Blood Pressure 151/78 12/01/17 13:18 O2 Sat by Pulse Oximetry (%) 98 12/01/17 01:00 Constitutional: Yes: Well Nourished, Calm Eyes: Yes: Conjunctiva Clear HENT: Yes: Normocephalic Neck: Yes: Trachea Midline, Other (trach in place) Cardiovascular: Yes: Regular Rate and Rhythm, Tachycardia Respiratory: Yes: Regular Gastrointestinal: Yes: Normal Bowel Sounds Edema: No Neurological: Yes: Lethargy, Pre-Existing Deficit Labs: CBC, BMP 12/01/17 07:20 12/01/17 07:20 rest reviewed Imaging - Results Chest X-ray: Report Reviewed, Image Reviewed EKG: Report Reviewed, Image Reviewed Problem List - Problems (1) Complication of tracheostomy tube Code(s): J95.00 - UNSPECIFIED TRACHEOSTOMY COMPLICATION (2) FUO (fever of unknown origin) Code(s): R50.9 - FEVER, UNSPECIFIED (3) Tachycardia Code(s): R00.0 - TACHYCARDIA, UNSPECIFIED Assessment/Plan PULMONARY STATUS STABLE/ S/P TRACH CHANGE FUO ON EMPIRIC ANTIBIOTICS/CULTURES PENDING WILL CONTINUE TO MONITOR Luli FREDERICK MD
[2017-12-01] MEDS: PIPERACILLIN/TAZOB 4.5 GM 4.5 GM in DEXTROSE 5%-WATER - 100 ML IVPB SCH (19:10)
[2017-12-01] MEDS: D5-1/2NS+20 MEQ KCL - 20 MEQ/1,000 ML INFUS.BAG IV SCH (19:10)
[2017-12-01] MEDS: VANCOMYCIN 1,250 MG in DEXTROSE 5%-WATER - 250 ML IVPB SCH (21:42)
[2017-12-02] MEDS: PIPERACILLIN/TAZOB 4.5 GM 4.5 GM in DEXTROSE 5%-WATER - 100 ML IVPB SCH ×3 (02:26→18:31)
[2017-12-02 07:58] LABS: ANION GAP 8 (8-16); BILIRUBIN,TOTAL 0.8 mg/dL (0.2-1.0); BLOOD UREA NITROGEN 4 mg/dL (7-18); CALCIUM 8.3 mg/dL (8.5-10.1); CHLORIDE 106 mmol/L (98-107); CO2 26 mmol/L (21-32); CREATININE 0.5 mg/dL (0.7-1.3); GLUCOSE,RANDOM 85 mg/dL (74-106); POTASSIUM 3.8 mmol/L (3.5-5.1); SGOT/AST 8 U/L (15-37); SGPT/ALT 16 U/L (12-78); SODIUM 140 mmol/L (136-145); TOT PROT 6.7 g/dl (6.4-8.2)
[2017-12-02 07:59] LABS: ALK PHOS 73 U/L (45-117)
[2017-12-02 08:02] LABS: BASO % 0.6 % (0-2.0); EOS % 4.5 % (0-4.5); HEMATOCRIT 31.7 % (35.4-49); HEMOGLOBIN 10.1 GM/dL (11.7-16.9); LYMPH % 14.9 % (8-40); MCH 28.1 pg (25.7-33.7); MCHC 31.8 g/dl (32.0-35.9); MEAN CELL VOLUME 88.2 fl (80-96); MEAN PLT VOLUME 7.9 fl (7.5-11.1); MONO % 7.7 % (3.8-10.2); NEUT % 72.3 % (42.8-82.8); PLATELET COUNT 349 K/MM3 (134-434); RBC 3.59 M/mm3 (4.00-5.60); RDW 17.5 % (11.9-15.9); WHITE BLOOD COUNT 9.1 K/mm3 (4.0-10.0)
[2017-12-02] MEDS ORDERED: PT OWN MED DRAWER 7, Y5N ONE ×2 (09:18→18:18)
[2017-12-02] MEDS: THIAMINE HCL 100 MG TABLET (FP) NGT SCH (10:55)
[2017-12-02] MEDS: MULTIVIT-MINERALS 236 ML ML GT SCH (10:56)
[2017-12-02] MEDS: APIXABAN 5 MG TABLET PO SCH ×2 (10:56→21:50)
[2017-12-02] MEDS: FOLIC ACID 1 MG TABLET (FP) GT SCH (10:56)
--- NOTE | 2017-12-02 11:30 | PN ---
Progress Note, Physician Chief Complaint: wants to go back to the ID-- he feels well. No c/o pain, SOB, cough - Current Medication List Current Medications: Active Medications Acetaminophen (Tylenol Oral Solution -) 650 mg GT Q6H PRN PRN Reason: FEVER Last Admin: 12/01/17 10:15 Dose: 650 mg Apixaban (Eliquis -) 5 mg PO BID [facility] Last Admin: 12/02/17 10:56 Dose: 5 mg Folic Acid (Folic Acid -) 1 mg GT DAILY [facility] Last Admin: 12/02/17 10:56 Dose: 1 mg Potassium Chloride/Dextrose/Sod Cl (D5-1/2ns+20 Meq Kcl -) 20 meq in 1,000 mls @ 125 mls/hr IV ASDIR [facility] Last Admin: 12/01/17 19:10 Dose: 125 mls/hr Vancomycin HCl 1,250 mg/ (Dextrose) 250 mls @ 166.667 mls/hr IVPB BID RUIZ PRN Reason: Protocol Last Admin: 12/01/17 21:42 Dose: 166.667 mls/hr Piperacillin Sod/Tazobactam (Sod 4.5 gm/ Dextrose) 100 mls @ 200 mls/hr IVPB Q8H-IV RUIZ PRN Reason: Protocol Last Admin: 12/02/17 10:56 Dose: 200 mls/hr Thiamine HCl (Vitamin B1 -) 100 mg NGT DAILY [facility] Last Admin: 12/02/17 10:55 Dose: 100 mg - Objective Vital Signs: Vital Signs Temperature 98.1 F 12/02/17 06:00 Pulse Rate 104 H 12/02/17 10:17 Respiratory Rate 20 12/02/17 06:00 Blood Pressure 152/78 12/02/17 06:00 O2 Sat by Pulse Oximetry (%) 96 12/02/17 10:17 Constitutional: Yes: No Distress Neck: Yes: Other (trach) Cardiovascular: Yes: Regular Rate and Rhythm Respiratory: Yes: CTA Bilaterally Gastrointestinal: Yes: Normal Bowel Sounds, Soft, Other (GT). No: Tenderness Edema: No Labs: CBC, BMP 12/02/17 06:45 12/02/17 06:45 INR, PTT INR 1.50 (0.82-1.09) H 12/01/17 02:55 Problem List - Problems (1) Complication of tracheostomy tube Code(s): J95.00 - UNSPECIFIED TRACHEOSTOMY COMPLICATION (2) FUO (fever of unknown origin) Code(s): R50.9 - FEVER, UNSPECIFIED Assessment/Plan TRACH culture -- MRSA IV VANCO ID aware continue with GT feeds
--- NOTE | 2017-12-02 12:03 | PN ---
Progress Note (short form) - Note Progress Note: PULONARY VSS AFEBRILE TRACH IN PLACE ON R/A STABLE POST TRACH CHANGE YESTERDAY NO OBJECTION TO DISCHARGE FROM A PULMONARY STANDPOINT Luli Martin Problem List - Problems (1) Complication of tracheostomy tube Code(s): J95.00 - UNSPECIFIED TRACHEOSTOMY COMPLICATION (2) FUO (fever of unknown origin) Code(s): R50.9 - FEVER, UNSPECIFIED (3) Tachycardia Code(s): R00.0 - TACHYCARDIA, UNSPECIFIED
[2017-12-02] MEDS: VANCOMYCIN 1,250 MG in DEXTROSE 5%-WATER - 250 ML IVPB SCH ×2 (12:30→21:50)
[2017-12-02] MEDS: D5-1/2NS+20 MEQ KCL - 20 MEQ/1,000 ML INFUS.BAG IV SCH ×2 (13:33→20:02)
[2017-12-03] MEDS: PIPERACILLIN/TAZOB 4.5 GM 4.5 GM in DEXTROSE 5%-WATER - 100 ML IVPB SCH ×3 (01:57→18:10)
--- NOTE | 2017-12-03 09:34 | PN ---
Progress Note (short form) - Note Progress Note: ID Vancomycin Zosyn S/P Trach change Had fever 102.3 admission now afebrile Microbiology 12/01/17 00:40 Trachea Insertion Site Gram Stain - Final 12/01/17 09:50 Blood - Peripheral Venous Blood Culture - Preliminary NO GROWTH OBTAINED AFTER 24 HOURS, INCUBATION TO CONTINUE FOR 4 DAYS. 12/01/17 09:35 Blood - Peripheral Venous Blood Culture - Preliminary NO GROWTH OBTAINED AFTER 24 HOURS, INCUBATION TO CONTINUE FOR 4 DAYS. 12/01/17 00:40 Trachea Insertion Site Wound Culture - Preliminary Presumptive Mrsa (Pbp2a Pos) Non Lactose Fermenting Gnb Selected Entries 12/03/17 06:00 Temperature 97.7 F Pulse Rate 106 H Respiratory 18 Rate Blood Pressure 144/87 Laboratory Tests 12/01/17 12/02/17 12/02/17 07:20 06:45 06:45 WBC 14.9 H 9.1 D Hgb 10.1 L Hct 31.7 L Plt Count 349 Creat Clearance w eGFR > 60 Assessment Obstructed tracheostomy with fever leukocytosis ? associated infection ( culture MRSA GNB NLF ?Pseudo) AFEBRILE NOW Plan Would stop antibiotics tomorrow then discharge Problem List - Problems (1) FUO (fever of unknown origin) Code(s): R50.9 - FEVER, UNSPECIFIED (2) Complication of tracheostomy tube Code(s): J95.00 - UNSPECIFIED TRACHEOSTOMY COMPLICATION
[2017-12-03] MEDS ORDERED: PT OWN MED DRAWER 7, Y5N ONE ×2 (10:04→16:59)
[2017-12-03] MEDS: THIAMINE HCL 100 MG TABLET (FP) NGT SCH (10:32)
[2017-12-03] MEDS: APIXABAN 5 MG TABLET PO SCH ×2 (10:32→21:46)
[2017-12-03] MEDS: FOLIC ACID 1 MG TABLET (FP) GT SCH (10:32)
[2017-12-03] MEDS: MULTIVIT-MINERALS 236 ML ML GT SCH (10:33)
--- NOTE | 2017-12-03 11:35 | PN ---
Progress Note (short form) - Note Progress Note: PULONARY VSS AFEBRILE TRACH IN PLACE ON R/A STABLE POST TRACH CHANGE YESTERDAY WILL HAVE ANTIBIOTICS STOPPED IN AM NO OBJECTION TO DISCHARGE FROM A PULMONARY STANDPOINT Luli Martin Problem List - Problems (1) Complication of tracheostomy tube Code(s): J95.00 - UNSPECIFIED TRACHEOSTOMY COMPLICATION (2) FUO (fever of unknown origin) Code(s): R50.9 - FEVER, UNSPECIFIED (3) Tachycardia Code(s): R00.0 - TACHYCARDIA, UNSPECIFIED
--- NOTE | 2017-12-03 12:06 | PN ---
Progress Note, Physician Chief Complaint: he feels well. No c/o pain, SOB, cough - Current Medication List Current Medications: Active Medications Acetaminophen (Tylenol Oral Solution -) 650 mg GT Q6H PRN PRN Reason: FEVER Last Admin: 12/01/17 10:15 Dose: 650 mg Apixaban (Eliquis -) 5 mg PO BID [facility] Last Admin: 12/03/17 10:32 Dose: 5 mg Folic Acid (Folic Acid -) 1 mg GT DAILY [facility] Last Admin: 12/03/17 10:32 Dose: 1 mg Vancomycin HCl 1,250 mg/ (Dextrose) 250 mls @ 166.667 mls/hr IVPB BID RUIZ PRN Reason: Protocol Last Admin: 12/02/17 21:50 Dose: 166.667 mls/hr Piperacillin Sod/Tazobactam (Sod 4.5 gm/ Dextrose) 100 mls @ 200 mls/hr IVPB Q8H-IV RUIZ PRN Reason: Protocol Last Admin: 12/03/17 10:32 Dose: 200 mls/hr Potassium Chloride/Dextrose/Sod Cl (D5-1/2ns+20 Meq Kcl -) 20 meq in 1,000 mls @ 100 mls/hr IV ASDIR [facility] Last Admin: 12/02/17 20:02 Dose: 100 mls/hr Thiamine HCl (Vitamin B1 -) 100 mg NGT DAILY [facility] Last Admin: 12/03/17 10:32 Dose: 100 mg - Objective Vital Signs: Vital Signs Temperature 97.7 F 12/03/17 06:00 Pulse Rate 106 H 12/03/17 06:00 Respiratory Rate 18 12/03/17 06:00 Blood Pressure 144/87 12/03/17 06:00 O2 Sat by Pulse Oximetry (%) 98 12/02/17 21:00 Constitutional: Yes: No Distress HENT: Yes: Other (trach) Cardiovascular: Yes: Regular Rate and Rhythm Respiratory: Yes: CTA Bilaterally Edema: No Labs: CBC, BMP 12/02/17 06:45 12/02/17 06:45 INR, PTT INR 1.50 (0.82-1.09) H 12/01/17 02:55 Problem List - Problems (1) Complication of tracheostomy tube Code(s): J95.00 - UNSPECIFIED TRACHEOSTOMY COMPLICATION (2) FUO (fever of unknown origin) Code(s): R50.9 - FEVER, UNSPECIFIED Assessment/Plan TRACH culture -- MRSA IV VANCO ID aware continue with GT feeds ID follow up noted-- possible dc tomorrow
[2017-12-03] MEDS: D5-1/2NS+20 MEQ KCL - 20 MEQ/1,000 ML INFUS.BAG IV SCH (12:07)
[2017-12-03] MEDS: VANCOMYCIN 1,250 MG in DEXTROSE 5%-WATER - 250 ML IVPB SCH ×2 (12:09→21:46)
[2017-12-03] MEDS: METOPROLOL TARTRATE 25 MG TABLET (FP) PO SCH (21:46)
[2017-12-04] MEDS: PIPERACILLIN/TAZOB 4.5 GM 4.5 GM in DEXTROSE 5%-WATER - 100 ML IVPB SCH ×3 (01:40→18:46)
[2017-12-04] MEDS ORDERED: PT OWN MED DRAWER 7, Y5N ONE ×2 (09:26→21:53)
[2017-12-04] MEDS: THIAMINE HCL 100 MG TABLET (FP) NGT SCH (09:50)
[2017-12-04] MEDS: FOLIC ACID 1 MG TABLET (FP) GT SCH (09:50)
[2017-12-04] MEDS: APIXABAN 5 MG TABLET PO SCH ×2 (09:50→22:05)
[2017-12-04] MEDS: METOPROLOL TARTRATE 25 MG TABLET (FP) PO SCH ×2 (09:50→22:05)
[2017-12-04] MEDS: D5-1/2NS+20 MEQ KCL - 20 MEQ/1,000 ML INFUS.BAG IV SCH ×2 (09:51→11:45)
[2017-12-04] MEDS: MULTIVIT-MINERALS 236 ML ML GT SCH (09:51)
[2017-12-04] MEDS: VANCOMYCIN 1,250 MG in DEXTROSE 5%-WATER - 250 ML IVPB SCH (11:18)
--- NOTE | 2017-12-04 11:24 | PN ---
Progress Note (short form) - Note Progress Note: PULONARY VSS AFEBRILE TRACH IN PLACE ON R/A spo2 99% NO CHANGE IN EXAM STABLE POST TRACH CHANGE MRSA TRACH ON ANTIBIOTICS NO OBJECTION TO DISCHARGE FROM A PULMONARY STANDPOINT R [facility] Problem List - Problems (1) Complication of tracheostomy tube Code(s): J95.00 - UNSPECIFIED TRACHEOSTOMY COMPLICATION (2) FUO (fever of unknown origin) Code(s): R50.9 - FEVER, UNSPECIFIED (3) Tachycardia Code(s): R00.0 - TACHYCARDIA, UNSPECIFIED
--- NOTE | 2017-12-04 12:02 | DS ---
Physical Examination Vital Signs: Vital Signs Temperature 97.7 F 12/04/17 06:00 Pulse Rate 102 H 12/04/17 09:49 Respiratory Rate 18 12/04/17 09:49 Blood Pressure 150/90 12/04/17 09:49 O2 Sat by Pulse Oximetry (%) 99 12/04/17 07:36 Findings/Remarks: awake/ comfortable all f/u noted chart reviewed. afebrile alert / awake. Constitutional: Yes: No Distress Eyes: Yes: Conjunctiva Clear Neck: Yes: Other (s/p trach-) Respiratory: Yes: CTA Bilaterally Gastrointestinal: Yes: Soft, Other (g tube) Edema: No Neurological: Yes: Alert Labs: CBC, BMP 12/02/17 06:45 12/02/17 06:45 Discharge Summary Reason For Visit: COMPLICATION OF TRACHEOSTOMY TUBE Current Active Problems Complication of tracheostomy tube (Acute) FUO (fever of unknown origin) (Acute) Hospital Course: This is a 27-year-old male with past medical history of hypoxic arrest status post's alcoholic encephalopathy, extremities DVT who sent to emergency department from [facility] with clotted trach. pt also found to have fever trach changed Treated with Abx sputum +ve for MRSA Seen by i/d Now i/v abx d/eagle will d/c to [facility] meds reconcilled discussed with child welfare caseworker/ nursing staff.. Condition: Stable - Instructions Disposition: [facility] - Home Medications Comprehensive Discharge Medication List: Ambulatory Orders Acetaminophen [Tylenol Arthritis] 650 mg PO QID PRN 11/27/17 Apixaban [Eliquis] 5 mg GT BID 11/27/17 Ergocalciferol [Drisdol -] 8,000 units GT WEEKLY 11/27/17 Folic Acid 1 mg GT DAILY 11/27/17 Multivit-Minerals/Ferrous Fum [Multivitamin Liquid] 9 mg GT DAILY 11/27/17 Thiamine HCl [Vitamin B1 -] 100 mg GT DAILY 11/27/17 Metoprolol Tartrate [Lopressor -] 25 mg PO BID tablet 12/04/17
[2017-12-05] MEDS: PIPERACILLIN/TAZOB 4.5 GM 4.5 GM in DEXTROSE 5%-WATER - 100 ML IVPB SCH ×2 (01:29→11:04)
[2017-12-05 06:25] VITALS: PULSE 110
--- NOTE | 2017-12-05 09:11 | PN ---
Progress Note, Physician History of Present Illness: awake and comfortable denies any complaints - Current Medication List Current Medications: Active Medications Acetaminophen (Tylenol Oral Solution -) 650 mg GT Q6H PRN PRN Reason: FEVER Last Admin: 12/01/17 10:15 Dose: 650 mg Apixaban (Eliquis -) 5 mg PO BID [facility] Last Admin: 12/04/17 22:05 Dose: 5 mg Folic Acid (Folic Acid -) 1 mg GT DAILY [facility] Last Admin: 12/04/17 09:50 Dose: 1 mg Piperacillin Sod/Tazobactam (Sod 4.5 gm/ Dextrose) 100 mls @ 200 mls/hr IVPB Q8H-IV RUIZ PRN Reason: Protocol Last Admin: 12/05/17 01:29 Dose: Not Given Potassium Chloride/Dextrose/Sod Cl (D5-1/2ns+20 Meq Kcl -) 20 meq in 1,000 mls @ 100 mls/hr IV ASDIR [facility] Last Admin: 12/04/17 11:45 Dose: Not Given Metoprolol Tartrate (Lopressor -) 25 mg PO BID [facility] Last Admin: 12/04/17 22:05 Dose: 25 mg Thiamine HCl (Vitamin B1 -) 100 mg NGT DAILY [facility] Last Admin: 12/04/17 09:50 Dose: 100 mg - Objective Vital Signs: Vital Signs Temperature 98.7 F 12/05/17 06:00 Pulse Rate 110 H 12/05/17 06:00 Respiratory Rate 20 12/05/17 06:00 Blood Pressure 142/97 12/05/17 06:00 O2 Sat by Pulse Oximetry (%) 98 12/04/17 23:00 Constitutional: Yes: No Distress, Calm Eyes: Yes: Conjunctiva Clear Neck: Yes: Supple, Other (Status post trach) Cardiovascular: Yes: Regular Rate and Rhythm Respiratory: Yes: CTA Bilaterally Gastrointestinal: Yes: Soft Edema: No Neurological: Yes: Alert Labs: CBC, BMP 12/02/17 06:45 12/02/17 06:45 INR, PTT INR 1.50 (0.82-1.09) H 12/01/17 02:55 Assessment/Plan clinically stable Patient was discharged yesterday--- unable to go due to insurance issues. Discussed with nursing staff today Likely discharge back to [facility] today. Meds has been reconciled Discontinue antibiotics.
[2017-12-05] MEDS ORDERED: PT OWN MED DRAWER 7, Y5N ONE (10:57)
[2017-12-05] MEDS: METOPROLOL TARTRATE 25 MG TABLET (FP) PO SCH (11:03)
[2017-12-05] MEDS: THIAMINE HCL 100 MG TABLET (FP) NGT SCH (11:03)
[2017-12-05] MEDS: FOLIC ACID 1 MG TABLET (FP) GT SCH (11:03)
[2017-12-05] MEDS: APIXABAN 5 MG TABLET PO SCH (11:04)
[2017-12-05] MEDS: MULTIVIT-MINERALS 236 ML ML GT SCH (11:04)
[2017-12-05] MEDS: D5-1/2NS+20 MEQ KCL - 20 MEQ/1,000 ML INFUS.BAG IV SCH (11:05)
--- NOTE | 2017-12-05 11:14 | PN ---
Progress Note (short form) - Note Progress Note: Resting in NAD on RA. No acute events overnight. Intake & Output 12/02/17 12/03/17 12/04/17 12/05/17 23:59 23:59 23:59 23:59 Intake Total 5020 4850 4040 1240 Output Total 2600 3300 2050 Balance 2420 1550 1990 1240 Last Vital Signs Temp Pulse Resp BP Pulse Ox 98.7 F 110 H 20 142/97 98 12/05/17 06:00 12/05/17 06:00 12/05/17 06:00 12/05/17 06:00 12/04/17 23:00 Active Medications Acetaminophen (Tylenol Oral Solution -) 650 mg GT Q6H PRN PRN Reason: FEVER Last Admin: 12/01/17 10:15 Dose: 650 mg Apixaban (Eliquis -) 5 mg PO BID [facility] Last Admin: 12/05/17 11:04 Dose: 5 mg Folic Acid (Folic Acid -) 1 mg GT DAILY [facility] Last Admin: 12/05/17 11:03 Dose: 1 mg Piperacillin Sod/Tazobactam (Sod 4.5 gm/ Dextrose) 100 mls @ 200 mls/hr IVPB Q8H-IV RUIZ PRN Reason: Protocol Last Admin: 12/05/17 11:04 Dose: Not Given Potassium Chloride/Dextrose/Sod Cl (D5-1/2ns+20 Meq Kcl -) 20 meq in 1,000 mls @ 100 mls/hr IV ASDIR [facility] Last Admin: 12/05/17 11:05 Dose: Not Given Metoprolol Tartrate (Lopressor -) 25 mg PO BID [facility] Last Admin: 12/05/17 11:03 Dose: 25 mg Thiamine HCl (Vitamin B1 -) 100 mg NGT DAILY [facility] Last Admin: 12/05/17 11:03 Dose: 100 mg Constitutional: Yes: No Distress HENT: Yes: Trach intact Cardiovascular: Yes: Regular Rate and Rhythm Respiratory: Yes: CTA Bilaterally Edema: No Labs: Problem List - Problems (1) Complication of tracheostomy tube Code(s): J95.00 - UNSPECIFIED TRACHEOSTOMY COMPLICATION (2) FUO (fever of unknown origin) Code(s): R50.9 - FEVER, UNSPECIFIED (3) Tachycardia Code(s): R00.0 - TACHYCARDIA, UNSPECIFIED IMP: STABLE POST TRACH CHANGE MRSA TRACH PLAN: No Pulmonary contraindication for D/C Should be off ABX per ID Dr Blackwood
--- NOTE | 2017-12-05 11:48 | EKG ---
Test Reason : Blood Pressure : / mmHG Vent. Rate : 144 BPM Atrial Rate : 144 BPM P-R Int : 126 ms QRS Dur : 080 ms QT Int : 278 ms P-R-T Axes : 061 -03 025 degrees QTc Int : 430 ms SINUS TACHYCARDIA MODERATE VOLTAGE CRITERIA FOR LVH, MAY BE NORMAL VARIANT NONSPECIFIC ST AND T WAVE ABNORMALITY ABNORMAL ECG WHEN COMPARED WITH ECG OF 01-DEC-2017 06:22, NO SIGNIFICANT CHANGE WAS FOUND Confirmed by MD Samy, Yasir ([id number]) on 12/05/2017 11:47:41 AM Referred By: Confirmed By:Yasir Pablo MD
[2017-12-05 15:31] VITALS: BP 151/99; TEMP 97.4
== END 2017-12-05 17:33 | DRG 143 ==
LOC: JER 23:01 → JERBED 12-01 00:56 → UNDOADMOB 12-01 01:00 → J5S 12-01 03:12 → OBSVTOIN 12-01 18:28
PROVIDERS: ADMIT Internal Medicine; ATTEND Internal Medicine
PROC: 0B21XFZ Change Tracheostomy Device in Trachea, External Approach (ICD-10-PCS; principal; 2017-12-01)
DX: J95.09 Other tracheostomy complication (principal); R50.9 Fever, unspecified; R00.0 Tachycardia, unspecified; A49.02 Methicillin resistant Staphylococcus aureus infection, unspecified site; Z93.1 Gastrostomy status; Z87.820 Personal history of traumatic brain injury; I82.4Z1 Acute embolism and thrombosis of unspecified deep veins of right distal lower extremity
CPT/HCPCS: 36415; 71045-TC-FY; 80048; 80053; 81003; 83605; 85025; 85379; 85610; 85730; 86850; 86900; 86901; 87040; 87070; 87086; 87186; 87205; 87804; 93005; 93010; 97162-GP; 99283-25; G0378; G0480